=== PATIENT | male | born 1995 | race Caucasian/White ===

== ENCOUNTER 2025-01-26 02:52 | Inpatient (IN) | payer MEDICAID ==
[~2025-01-26] VITALS: Ht 172.7 cm; Wt 134.7 kg
[2025-01-26 03:03] VITALS: O2SAT 98
[2025-01-26] MEDS ORDERED: HYDRALAZINE 20MG/ML VIAL IV ONE (04:30)
[2025-01-26] MEDS: ACETAMINOPHEN 500MG TABLET PO ONE (05:02)
[2025-01-26 05:21] LABS: BASOPHILS % 0.4 % (0.0-2.0); EOSINOPHILS % 1.8 % (0.0-5.0); HEMATOCRIT. 40.3 % (42.0-52.0); HEMOGLOBIN. 13.8 g/dL (14.0-18.0); LYMPHOCYTES % 33.4 % (20.0-50.0); MEAN PLATELET VOLUME 7.3 fl (7.4-10.4); MONOCYTES % 8.5 % (2.0-8.0); NEUTROPHILS % 55.9 % (40.0-76.0); PLATELET 336 x1000/uL (130-400); RED BLOOD CELL COUNT 4.55 mill/uL (4.7-6.1); RED CELL DISTRIBUTION WIDTH 13.5 % (11.6-14.6)
[2025-01-26 05:42] LABS: CLARITY URINE CLEAR (CLEAR); COLOR URINE STRAW (YELLOW)
[2025-01-26 05:43] LABS: GLUCOSE URINE NEGATIVE (NEGATIVE); KETONES URINE NEGATIVE (NEGATIVE); NITRITE URINE NEGATIVE (NEGATIVE); OCCULT BLOOD URINE NEGATIVE (NEGATIVE); PH URINE 7.5 (4.5-8.0); PROTEIN URINE NEGATIVE (NEGATIVE); SPECIFIC GRAVITY URINE 1.039 (1.005-1.030)
[2025-01-26 05:43] LABS: CREATININE 0.9 mg/dL (0.6-1.3)
[2025-01-26 05:44] LABS: LEUKOCYTE ESTERASE URINE NEGATIVE (NEGATIVE); UROBILINOGEN URINE 0.2 E.U./dL (0.2-1.0)
[2025-01-26 05:44] LABS: ETHANOL BLOOD < 10 mg/dL (<10); UREA NITROGEN BLOOD 9 mg/dL (9-23)
[2025-01-26 05:46] LABS: ASPARTATE AMINOTRANSFERASE 26 IU/L (<34); BILIRUBIN DIRECT 0.1 mg/dL (<=3.0); BILIRUBIN TOTAL 0.4 mg/dL (0.1-1.0); PROTEIN TOTAL 6.9 g/dL (6.0-8.3)
[2025-01-26 05:47] LABS: *AMPHETAMINES SCREEN URINE NEGATIVE (NEGATIVE); *BARBITURATES SCREEN URINE NEGATIVE (NEGATIVE); *BENZODIAZEPINES SCREEN URINE NEGATIVE (NEGATIVE); *COCAINE SCREEN URINE NEGATIVE (NEGATIVE); CANNABINOID URINE SCREEN NEGATIVE (NEGATIVE); ECSTASY MDMA SCREEN URINE NEGATIVE (NEGATIVE); METHADONE URINE SCREEN NEGATIVE (NEGATIVE); OPIATES URINE SCREEN NEGATIVE (NEGATIVE); PHENCYCLIDINE URINE SCREEN NEGATIVE (NEGATIVE)
[2025-01-26 05:56] LABS: INR 1.0
[2025-01-26] MEDS ORDERED: IOHEXOL-350 100 ML BOTTLE ONE (07:05)
[2025-01-26 08:00] VITALS: BP 150/89; PULSE 68; RESP 15; TEMP 33.4156
[2025-01-26] MEDS ORDERED: ONDANSETRON HCL 4MG/2ML INJ IV PRN (08:15)
[2025-01-26] MEDS ORDERED: IPRATROPIUM/ALBUTEROL 0.5-3(2.5)MG/3ML NEB HHN PRN (08:15)
[2025-01-26] MEDS ORDERED: CLONIDINE 0.1MG TABLET PO PRN (08:15)
[2025-01-26] MEDS ORDERED: DOCUSATE SODIUM 100MG CAPSULE PO PRN (08:15)
[2025-01-26] MEDS ORDERED: MAGNESIUM/ALUMINUM HYDROXIDE/SIMETHICONE 30ML UDC PO PRN (08:15)
[2025-01-26] MEDS ORDERED: GUAIFENESIN 200MG/10ML SUGAR FREE UDC PO PRN (08:15)
[2025-01-26] MEDS ORDERED: ACETAMINOPHEN 325MG TABLET PO PRN ×2 (08:15)
[2025-01-26] MEDS: THIAMINE HCL 100MG TABLET PO SCH (09:57)
[2025-01-26] MEDS: ASPIRIN 81MG EC TABLET PO SCH (09:58)
[2025-01-26 11:48] LABS: TRIGLYCERIDE 79 mg/dL (0-150)
[2025-01-26 11:49] LABS: LDL CHOLESTEROL 122 mg/dL (5-100)
[2025-01-26 11:50] LABS: PHOSPHORUS 3.4 mg/dL (2.5-4.9)
[2025-01-26 11:54] LABS: T4 FREE 1.21 ng/dL (0.89-1.76)
[2025-01-26 12:00] VITALS: BP 142/90; PULSE 68; RESP 17; TEMP 36.3; O2SAT 99
[2025-01-26] MEDS ORDERED: LEVE1000 MT (12:39)
[2025-01-26] MEDS ORDERED: OXCA150T5 MT (12:39)
[2025-01-26 16:00] VITALS: BP 140/80; PULSE 67; RESP 17; TEMP 36.3
[2025-01-26] MEDS ORDERED: NAPROXEN 375MG TABLET PO PRN (16:30)
[2025-01-26 17:05] VITALS: BP 140/80; PULSE 67; RESP 18; TEMP 97.4
== END 2025-01-26 18:05 | disposition home or self-care (01) | DRG 58 ==
LOC: ER 02:52 → 7WST 05:06 → EDBEDREQTM 05:10 → EDBEDREQ 05:10 → ENRESERV 06:55
PROVIDERS: ADMIT Internal Medicine; ATTEND Internal Medicine
DX: R47.1 Dysarthria and anarthria (principal); E66.01 Morbid (severe) obesity due to excess calories; I10 Essential (primary) hypertension; G40.909 Epilepsy, unspecified, not intractable, without status epilepticus; G43.909 Migraine, unspecified, not intractable, without status migrainosus; T42.1X5A Adverse effect of iminostilbenes, initial encounter; R47.81 Slurred speech; E78.5 Hyperlipidemia, unspecified; Z68.42 Body mass index [BMI] 45.0-49.9, adult; Z79.899 Other long term (current) drug therapy; Y92.89 Other specified places as the place of occurrence of the external cause
CPT/HCPCS: 36415; 70496; 70498; 71045; 80048; 80061; 80076; 80305; 80320; 81003; 83735; 84100; 84439; 84443; 85025; 92610; 93005; 97166; 99285; Q9967; G0480